=== PATIENT | female | born 1980 | race American Indian/Alaskan Native ===

== ENCOUNTER 2016-05-29 11:42 | Day surgery (SDC) | payer MEDICAID ==
[2016-05-23 11:08] LABS: Basophils % (Auto) 0.4 % (0.0-1.8); Eosinophils % (Auto) 2.2 % (0.0-4.3); Hematocrit 38.6 % (30.3-42.9); Hemoglobin 12.5 gm/dl (10.1-14.3); Mean Corpuscular HGB Conc 33 % (30-34); Mean Corpuscular Hemoglobin 30 pg (28-32); Mean Corpuscular Volume 91 fl (79-97); Platelet Count 318 K/mm3 (140-440); Red Blood Count 4.26 M/mm3 (3.65-5.03); Red Cell Distribution Width 15.5 % (13.2-15.2); White Blood Count 7.3 K/mm3 (4.5-11.0)
--- NOTE | 2016-05-23 11:09 | Anesthesia Consultation ---
Anesthesia Consult and Med Hx Date of service: 05/23/16 (Scheduled for Bilateral breast reduction with Dr. Wu on 05/29/16) - Airway Anesthetic Teeth Evaluation: Good ROM Head & Neck: Adequate Mental/Hyoid Distance: Adequate Mallampati Class: Class II Intubation Access Assessment: Probably Good - Pulmonary Exam CTA: Yes - Cardiac Exam Cardiac Exam: RRR - Pre-Operative Health Status ASA Pre-Surgery Classification: ASA2 Proposed Anesthetic Plan: General - Pre-Anesthesia Comment Pre-Anesthesia Comments: No previous anesthesia complications. Pt advised to use Albuterol inhaler on day of surgery. - Pulmonary Hx Smoking: No Hx Asthma: Yes (INHALER PRN) Hx Sleep Apnea: No (TRUDY PRE SCREEN HIGH RISK) - Cardiovascular System Hx Hypertension: No - Gastrointestinal Hx Gastroesophageal Reflux Disease: No - Endocrine Hx Non-Insulin Dependent Diabetes: No Hx Thyroid Disease: No - Other Systems Hx Cancer: No Hx Obesity: Yes
[~2016-05-29 11:42] MED LIST: ANCEF/STERILE WATER 2 GM/20 ML IV NR; LACTATED RINGERS 1,000 ML IV SCH; NEURONTIN PO NR; PEPCID PO NR; VERSED IV NR
[2016-05-29] MEDS ORDERED: DIPRIVAN 10 MG/ML IV ONE (12:40)
[2016-05-29] MEDS ORDERED: DILAUDID ONE ×2 (12:40→16:50)
[2016-05-29] MEDS ORDERED: XYLOCAINE MPF 2% ONE (12:40)
[2016-05-29] MEDS ORDERED: NACL 0.9% IR ONE (13:34)
[2016-05-29] MEDS ORDERED: DECADRON ONE (13:41)
[2016-05-29] MEDS ORDERED: APRESOLINE ONE (14:41)
[2016-05-29] MEDS ORDERED: ZOFRAN ONE (16:11)
[2016-05-29] MEDS: DILAUDID IV PRN ×2 (16:50→17:00)
--- NOTE | 2016-05-29 17:09 | Post Anesthesia Evaluation ---
- Post Anesthesia Evaluation Patient Participated: Yes Airway Patent: Yes Stable Respiratory Function: Yes Nausea/Vomiting: No Temp > 96.8F: Yes Pain Manageable: Yes Adequeate Hydration: Yes Anesthesia Complications: No
[2016-05-29] MEDS ORDERED: NORCO 5/325 PO PRN (17:51)
[2016-05-29 19:49] VITALS: BP 130/84
--- NOTE | 2016-05-29 20:12 | Operative Report ---
SERVICE: Plastic surgery. PREOPERATIVE DIAGNOSIS: Macromastia. POSTOPERATIVE DIAGNOSIS: Macromastia. PROCEDURE: Bilateral reduction mammoplasty. SURGEON: Yosef Wu MD TATTOO TECHNICIAN: Arpit Parra CSA FINDINGS: 920 gm removed from the left breast, 700 gm removed from the right breast. DESCRIPTION OF PROCEDURE: The patient was brought to the operating room and placed on the table in supine position. Following administration of general anesthesia, bilateral breasts were prepped with Betadine solution and draped in usual sterile manner. A #10 blade scalpel was used to make a circumareolar skin incision followed by de-epithelization of inferior dermal pedicle. Modified Hedrick pattern skin markings were incised with scalpel, deepened through subcutaneous fat and breast tissue using the electrocautery. Skin flaps were raised in standard manner as was fashioning of an inferior central mound pedicle. Breasts tissue was resected and sent to pathology as specimen. Hemostasis controlled using electrocautery. Closure was performed over 10-mm Zachery drain using interrupted and running subcuticular 2-0 Monocryl sutures. Mastisol, Steri-Strips, and sterile dressings applied. The patient tolerated the procedure well and returned to recovery room in stable condition. JOB# [id number]
== END 2016-05-29 19:15 | disposition home or self-care (01) ==
LOC: OR 11:42
PROVIDERS: ATTEND Plastic Surgery
DX: N62 Hypertrophy of breast (principal); J45.909 Unspecified asthma, uncomplicated; E66.9 Obesity, unspecified; Z68.41 Body mass index [BMI] 40.0-44.9, adult
CPT/HCPCS: 19318; 36415; 81025; 85025; 88305; J0360; J0690; J1100; J1170; J2250; J2405; J2704; J7120

== ENCOUNTER 2021-11-18 00:09 | Emergency (ER) | payer SELFPAY ==
--- NOTE | 2021-11-18 00:45 | Emergency Department Report ---
HPI - General Chief Complaint: Dyspnea/Respdistress Time Seen by Provider: 11/18/21 00:31 - HPI HPI: Room 19 Patient is a 41-year-old female present with a chief complaint of intoxication. Patient admits to eating marijuana edibles earlier this evening. Patient is uncertain how much she ingested but EMS was called initially for shortness of breath. Upon their arrival patient was satting 100% on room air without wheezing. Patient acknowledged consuming edibles. Patient now denies complaints stating nothing is bothering her that she wants to go to sleep. Patient denies any other ingestions ED Past Medical Hx - Past Medical History Previous Medical History?: Yes Hx Asthma: Yes (INHALER PRN) - Surgical History Past Surgical History?: No Additional Surgical History: Tummy tuck, myomectomy, ectopic (right side?) - Family History Family history: no significant - Social History Smoking Status: Never Smoker Substance Use Type: Marijuana - Medications Home Medications: Home Medications Medication Instructions Recorded Confirmed Last Taken Type Albuterol Mdi (or & Nicu Only) 1 puff INHALATION PRN PRN 05/22/16 05/29/16 10:00 History [ProAir HFA Inhaler] ED Review of Systems ROS: Stated complaint: DIFF BREATHING Other details as noted in HPI Constitutional: no symptoms reported Eyes: denies: eye pain ENT: denies: throat pain Respiratory: shortness of breath Cardiovascular: denies: chest pain Endocrine: no symptoms reported Gastrointestinal: denies: abdominal pain Genitourinary: denies: dysuria Musculoskeletal: denies: back pain Neurological: denies: headache Physical Exam - Physical Exam Vital Signs: Vital Signs 11/18/21 00:22 Temperature 97.3 F L Pulse Rate 71 Respiratory 18 Rate Blood Pressure 152/117 O2 Sat by Pulse 98 Oximetry Physical Exam: GENERAL: The patient is well-developed well-nourished female lying on stretcher not appearing to be in acute distress. [] HEENT: Normocephalic. Atraumatic. Extraocular motions are intact. Patient has moist mucous membranes. NECK: Supple. Trachea midline CHEST/LUNGS: Clear to auscultation. There is no respiratory distress noted. HEART/CARDIOVASCULAR: Regular. There is no tachycardia. There is no gallop rub or murmur. ABDOMEN: Abdomen is soft, nontender. Patient has normal bowel sounds. There is no abdominal distention. SKIN: There is no rash. There is no edema. There is no diaphoresis. NEURO: The patient is awake, alert, and oriented. The patient is cooperative. The patient has no focal neurologic deficits. The patient has normal speech. GCS 15 MUSCULOSKELETAL: There is no evidence of acute injury. ED Course Vital Signs 11/18/21 00:22 Temperature 97.3 F L Pulse Rate 71 Respiratory 18 Rate Blood Pressure 152/117 O2 Sat by Pulse 98 Oximetry ED Medical Decision Making - Lab Data Result diagrams: 11/18/21 00:47 11/18/21 00:47 Laboratory Tests 11/18/21 11/18/21 11/18/21 00:47 00:47 00:47 WBC 5.1 RBC 3.66 Hgb 11.3 Hct 33.8 MCV 93 MCH 31 MCHC 33 RDW 15.2 Plt Count 335 Lymph % (Auto) 19.7 [place] % (Auto) 7.7 H Eos % (Auto) 1.3 Baso % (Auto) 0.5 Lymph # (Auto) 1.0 L [place] # (Auto) 0.4 Eos # (Auto) 0.1 Baso # (Auto) 0.0 Seg Neutrophils % 70.8 H Seg Neutrophils # 3.6 Sodium 137 Potassium 3.9 Chloride 102.7 Carbon Dioxide 23 Anion Gap 15 BUN 16 Creatinine 0.7 Estimated GFR > 60 BUN/Creatinine Ratio 23 Glucose 145 H Calcium 9.1 Total Creatine Kinase 53 CK-MB (CK-2) < 1.0 CK-MB (CK-2) Rel Index 1.8 Troponin T < 0.010 Urine Opiates Screen Urine Methadone Screen Ur Barbiturates Screen Ur Phencyclidine Scrn Ur Amphetamines Screen U Benzodiazepines Scrn Urine Cocaine Screen Plasma/Serum Alcohol < 0.01 11/18/21 02:40 WBC RBC Hgb Hct MCV MCH MCHC RDW Plt Count Lymph % (Auto) [place] % (Auto) Eos % (Auto) Baso % (Auto) Lymph # (Auto) [place] # (Auto) Eos # (Auto) Baso # (Auto) Seg Neutrophils % Seg Neutrophils # Sodium Potassium Chloride Carbon Dioxide Anion Gap BUN Creatinine Estimated GFR BUN/Creatinine Ratio Glucose Calcium Total Creatine Kinase CK-MB (CK-2) CK-MB (CK-2) Rel Index Troponin T Urine Opiates Screen Negative Urine Methadone Screen Negative Ur Barbiturates Screen Negative Ur Phencyclidine Scrn Negative Ur Amphetamines Screen Negative U Benzodiazepines Scrn Negative Urine Cocaine Screen Negative Plasma/Serum Alcohol - Differential Diagnosis THC intoxication Critical care attestation.: If time is entered above; I have spent that time in minutes in the direct care of this critically ill patient, excluding procedure time. ED Disposition Clinical Impression: Marijuana use Disposition: 07 LEFT AGAINST MEDICAL ADVICE Is pt being admited?: No Does the pt Need Aspirin: No Condition: Stable Time of Disposition: 02:52
[2021-11-18 01:02] LABS: Basophils % (Auto) 0.5 % (0.0-1.8); Eosinophils # (Auto) 0.1 K/mm3 (0.0-0.4); Eosinophils % (Auto) 1.3 % (0.0-4.3); Hematocrit 33.8 % (30.3-42.9); Hemoglobin 11.3 gm/dl (10.1-14.3); Lymphocytes % (Auto) 19.7 % (13.4-35.0); Mean Corpuscular HGB Conc 33 % (30-34); Mean Corpuscular Volume 93 fl (79-97); Monocytes # (Auto) 0.4 K/mm3 (0.0-0.8); Monocytes % (Auto) 7.7 % (0.0-7.3); Platelet Count 335 K/mm3 (140-440); Red Blood Count 3.66 M/mm3 (3.65-5.03); Red Cell Distribution Width 15.2 % (13.2-15.2)
[2021-11-18 01:25] LABS: Creatine Kinase MB < 1.0 ng/mL (0.0-4.0)
[2021-11-18 01:26] LABS: BUN/Creatinine Ratio 23; Blood Urea Nitrogen 16 mg/dL (7-17); Calcium 9.1 mg/dL (8.4-10.2); Hemolysis Index 4
[2021-11-18 02:37] LABS: Amphetamine Screen,Urine Negative; Benzodiazepines Screen,Urine Negative; Cocaine Screen,Urine Negative; Methadone Screen,Urine Negative; Opiate Screen,Urine Negative
[2021-11-18 02:42] VITALS: BP 144/81
[2021-11-18 03:04] LABS: Cannabinoid Screen,Urine Positive
== END 2021-11-18 03:03 | disposition left against medical advice (07) ==
LOC: ED 00:09
DX: F12.90 Cannabis use, unspecified, uncomplicated (principal); J45.909 Unspecified asthma, uncomplicated; Z79.899 Other long term (current) drug therapy
CPT/HCPCS: 36415; 80048; 80307; 80320; 82550; 82553; 84484; 85025; 99283; G0480